=== PATIENT | female | born 1935 | race Two or more races ===

== ENCOUNTER 2021-12-24 18:44 | Inpatient (IN) | payer MEDICARE, MEDICAID ==
[~2021-12-24] VITALS: Ht 160 cm; Wt 91.0 kg
[2021-12-24 19:22] LABS: Basophils # (auto) 0.1 10 ^3/uL (0-0.2); Basophils % (auto) 0.9 % (0.0-2.0); Eosinophils # (auto) 0.2 10 ^3/uL (0-0.8); Eosinophils % (auto) 2.1 % (0.0-7.0); Hematocrit 31.7 % (36.0-46.0); Hemoglobin 10.8 g/dL (12.2-16.2); Lymphocytes # (auto) 2.1 10 ^3/uL (0.4-5.4); Lymphocytes % (auto) 24.5 % (10.0-50.0); Mean Corpuscular Hemoglobin 33.6 pg (28.0-32.0); Mean Corpuscular Hgb Conc. 34.1 g/dL (32.0-36.0); Mean Corpuscular Volume 98.7 fL (80.0-100.0); Monocytes # (auto) 0.5 10 ^3/uL (0-1.3); Monocytes % (auto) 5.8 % (0.0-12.0); Neutrophils # (auto) 5.7 10 ^3/uL (1.6-8.6); Neutrophils % (auto) 66.7 % (37.0-80.0); Red Blood Cells 3.21 10^6/uL (4.0-5.20); Red Cell Distribution Width 13.4 % (11.8-14.3); White Blood Cell 8.5 10^3/uL (4.4-10.8)
[2021-12-24 19:41] LABS: Albumin 3.3 g/dL (3.4-5.0); BUN/Creatinine Ratio 17.3; Calcium 8.3 mg/dL (8.5-10.1); Potassium 4.5 mmol/L (3.5-5.1)
[2021-12-24 19:44] LABS: Bilirubin, Total 0.4 mg/dL (0.2-1.0); Total Protein 6.7 g/dL (6.4-8.2)
[2021-12-24] MEDS ORDERED: SODIUM CHLORIDE 0.9% 1,000 ML IVB ONE (20:15)
[2021-12-24] MEDS ORDERED: KETOROLAC TROMETH 30 MG/ML 1ML VIAL IV ONE (20:15)
[2021-12-24 20:52] LABS: Urine Bacteria FEW /hpf (None Seen); Urine Blood 3+ /uL (Negative); Urine Specific Gravity 1.015 (1.001-1.035); Urine WBC 29 /hpf (0 - 5)
[2021-12-24] MEDS ORDERED: cefTRIAXone 1GM/50ML D5W 50 ML IV ONE (21:00)
[2021-12-24] MEDS ORDERED: ONDANSETRON HCL 4 MG/2 ML VIAL IV PRN (22:15)
[2021-12-24] MEDS ORDERED: ACETAMINOPHEN 325 MG TAB PO PRN (22:15)
[2021-12-25 01:30] VITALS: BP 122/74
[2021-12-25 03:07] VITALS: BP 122/74
[2021-12-25 05:00] VITALS: BP 133/96
[2021-12-25 06:10] LABS: Basophils # (auto) 0.1 10 ^3/uL (0-0.2); Eosinophils # (auto) 0.2 10 ^3/uL (0-0.8); Eosinophils % (auto) 2.8 % (0.0-7.0); Mean Corpuscular Hgb Conc. 35.2 g/dL (32.0-36.0); Monocytes # (auto) 0.5 10 ^3/uL (0-1.3); Neutrophils # (auto) 5.4 10 ^3/uL (1.6-8.6); Red Blood Cells 2.59 10^6/uL (4.0-5.20)
[2021-12-25 06:14] LABS: Basophils % (auto) 0.7 % (0.0-2.0); Hematocrit 25.6 % (36.0-46.0); Lymphocytes # (auto) 1.4 10 ^3/uL (0.4-5.4); Lymphocytes % (auto) 18.9 % (10.0-50.0); Mean Corpuscular Hemoglobin 34.8 pg (28.0-32.0); Mean Corpuscular Volume 98.9 fL (80.0-100.0); Monocytes % (auto) 7.1 % (0.0-12.0); Neutrophils % (auto) 70.5 % (37.0-80.0); Nucleated Red Blood Cells % 0.2 %; Red Cell Distribution Width 13.2 % (11.8-14.3); White Blood Cell 7.6 10^3/uL (4.4-10.8)
[2021-12-25 06:19] LABS: BUN/Creatinine Ratio 19.4; Potassium 4.6 mmol/L (3.5-5.1)
[2021-12-25] MEDS: LEVOTHYROXINE SODIUM 50 MCG TAB PO SCH (06:39)
[2021-12-25] MEDS: PANTOPRAZOLE 40 MG TAB PO SCH (09:18)
[2021-12-25] MEDS: cefTRIAXone 1GM/50ML D5W 50 ML IV SCH (09:18)
[2021-12-25] MEDS ORDERED: BENAZEPRIL HCL 10 MG TAB PO SCH (10:00)
[2021-12-25] MEDS ORDERED: hydrALAZINE HCL 20 MG/ML VL IV PRN (13:15)
[2021-12-25] MEDS: SODIUM CHLORIDE 0.9% 1,000 ML IV SCH (14:15)
[2021-12-25 18:13] LABS: INR 0.95 (0.9-1.15); Partial Thromboplastin Time 23.7 sec (23.6-33.0)
[2021-12-25] MEDS: ATORVASTATIN 20 MG TAB PO SCH (21:50)
[2021-12-25 22:00] VITALS: BP 132/78
[2021-12-25] MEDS: HYDROcodone-ACET 5/325MG TAB PO PRN (22:03)
[2021-12-26] MEDS: SODIUM CHLORIDE 0.9% 1,000 ML IV SCH ×3 (03:25→22:33)
[2021-12-26 05:11] VITALS: BP 130/78
[2021-12-26] MEDS: LEVOTHYROXINE SODIUM 50 MCG TAB PO SCH (05:57)
[2021-12-26 06:10] LABS: Basophils # (auto) 0 10 ^3/uL (0-0.2); Basophils % (auto) 0.6 % (0.0-2.0); Eosinophils # (auto) 0.3 10 ^3/uL (0-0.8); Eosinophils % (auto) 4.3 % (0.0-7.0); Hematocrit 23.1 % (36.0-46.0); Hemoglobin 7.9 g/dL (12.2-16.2); Lymphocytes # (auto) 1.2 10 ^3/uL (0.4-5.4); Lymphocytes % (auto) 21.4 % (10.0-50.0); Mean Corpuscular Hemoglobin 34.1 pg (28.0-32.0); Mean Corpuscular Hgb Conc. 34.2 g/dL (32.0-36.0); Mean Corpuscular Volume 99.6 fL (80.0-100.0); Monocytes # (auto) 0.4 10 ^3/uL (0-1.3); Monocytes % (auto) 7.4 % (0.0-12.0); Neutrophils # (auto) 3.8 10 ^3/uL (1.6-8.6); Neutrophils % (auto) 66.3 % (37.0-80.0); Nucleated Red Blood Cells % 0.1 %; Red Blood Cells 2.32 10^6/uL (4.0-5.20); Red Cell Distribution Width 13.4 % (11.8-14.3); White Blood Cell 5.8 10^3/uL (4.4-10.8)
[2021-12-26 06:21] LABS: Calcium 8.2 mg/dL (8.5-10.1); Magnesium 2.7 mg/dL (1.6-2.6); Potassium 4.6 mmol/L (3.5-5.1)
[2021-12-26 06:25] LABS: BUN/Creatinine Ratio 16.7
[2021-12-26 09:00] VITALS: BP 102/57
[2021-12-26] MEDS: PANTOPRAZOLE 40 MG TAB PO SCH (10:00)
[2021-12-26] MEDS ORDERED: ASCO1TAB27 PO (10:31)
[2021-12-26] MEDS: cefTRIAXone 1GM/50ML D5W 50 ML IV SCH (10:41)
[2021-12-26] MEDS ORDERED: MIDAZOLAM HCL 2MG/2ML 2ml VIAL (1mg/ml) ONE (12:44)
[2021-12-26] MEDS ORDERED: fentaNYL CITRATE 100 MCG/2 ML VL ONE (12:44)
[2021-12-26] MEDS ORDERED: IODIXANOL 320MG/ML 100ML BTL IV ONE (12:46)
[2021-12-26] MEDS ORDERED: LIDOCAINE 2%HCL (LOCAL ANESTH.) INJ 10ml MDV ONE (12:46)
[2021-12-26 13:00] VITALS: BP 112/59
[2021-12-26 17:00] VITALS: BP 119/45
[2021-12-26] MEDS: ATORVASTATIN 20 MG TAB PO SCH (21:04)
[2021-12-26 22:00] VITALS: BP 111/52
[2021-12-27 05:00] VITALS: BP 106/27
[2021-12-27] MEDS: LEVOTHYROXINE SODIUM 50 MCG TAB PO SCH (05:30)
[2021-12-27 05:34] LABS: Hemoglobin 7.6 g/dL (12.2-16.2)
[2021-12-27 05:40] LABS: Potassium 4.4 mmol/L (3.5-5.1)
[2021-12-27 05:45] LABS: Calcium 7.9 mg/dL (8.5-10.1)
[2021-12-27] MEDS: cefTRIAXone 1GM/50ML D5W 50 ML IV SCH (08:47)
[2021-12-27] MEDS: PANTOPRAZOLE 40 MG TAB PO SCH (08:47)
[2021-12-27 09:00] VITALS: BP 115/43
[2021-12-27] MEDS: SODIUM CHLORIDE 0.9% 1,000 ML IV SCH (11:11)
[2021-12-27 13:00] VITALS: BP 105/57
[2021-12-27] MEDS ORDERED: SODIUM CHL 0.9% IV ONE (14:30)
[2021-12-27] MEDS ORDERED: AMINOCAPROIC ACID IV ONE (14:30)
[2021-12-27 16:58] VITALS: BP 106/46
[2021-12-27 21:30] VITALS: BP 129/67
[2021-12-28] MEDS: SODIUM CHLORIDE 0.9% 1,000 ML IV SCH ×2 (04:13→20:05)
[2021-12-28 05:00] VITALS: BP 135/55
[2021-12-28] MEDS: LEVOTHYROXINE SODIUM 50 MCG TAB PO SCH (05:38)
[2021-12-28 05:51] LABS: Hemoglobin 7.4 g/dL (12.2-16.2)
[2021-12-28 06:14] LABS: BUN/Creatinine Ratio 14.2; Calcium 7.9 mg/dL (8.5-10.1); Potassium 4.5 mmol/L (3.5-5.1)
[2021-12-28 09:00] VITALS: BP 135/57
[2021-12-28] MEDS: HYDROcodone-ACET 5/325MG TAB PO PRN (10:32)
[2021-12-28] MEDS: PANTOPRAZOLE 40 MG TAB PO SCH (10:32)
[2021-12-28] MEDS: cefTRIAXone 1GM/50ML D5W 50 ML IV SCH (10:32)
[2021-12-28 13:00] VITALS: BP 100/53
[2021-12-28 17:00] VITALS: BP 130/68
[2021-12-28 21:44] VITALS: BP 119/54
[2021-12-29 05:00] VITALS: BP 139/61
[2021-12-29] MEDS: LEVOTHYROXINE SODIUM 50 MCG TAB PO SCH (06:26)
[2021-12-29 09:00] VITALS: BP 110/33
[2021-12-29] MEDS: PANTOPRAZOLE 40 MG TAB PO SCH (10:30)
[2021-12-29] MEDS: cefTRIAXone 1GM/50ML D5W 50 ML IV SCH (10:30)
[2021-12-29] MEDS: SODIUM CHLORIDE 0.9% 1,000 ML IV SCH (12:45)
[2021-12-29 13:00] VITALS: BP 135/85
[2021-12-29 17:00] VITALS: BP 121/59
[2021-12-29 22:00] VITALS: BP 119/34
[2021-12-30 05:00] VITALS: BP 128/37
[2021-12-30] MEDS: SODIUM CHLORIDE 0.9% 1,000 ML IV SCH (06:33)
[2021-12-30] MEDS: LEVOTHYROXINE SODIUM 50 MCG TAB PO SCH (06:33)
[2021-12-30 08:44] VITALS: BP 126/63
[2021-12-30] MEDS: PANTOPRAZOLE 40 MG TAB PO SCH (09:36)
[2021-12-30] MEDS: cefTRIAXone 1GM/50ML D5W 50 ML IV SCH (09:36)
[2021-12-30 13:00] VITALS: BP 119/64
[2021-12-30 16:28] LABS: Basophils # (auto) 0.1 10 ^3/uL (0-0.2); Eosinophils # (auto) 0.3 10 ^3/uL (0-0.8); Hematocrit 21.4 % (36.0-46.0); Neutrophils % (auto) 65.4 % (37.0-80.0); Nucleated Red Blood Cells % 0.1 %; White Blood Cell 6.5 10^3/uL (4.4-10.8)
[2021-12-30 16:30] LABS: Basophils % (auto) 1.2 % (0.0-2.0); Eosinophils % (auto) 4.5 % (0.0-7.0); Hemoglobin 7.6 g/dL (12.2-16.2); Lymphocytes # (auto) 1.4 10 ^3/uL (0.4-5.4); Lymphocytes % (auto) 20.8 % (10.0-50.0); Mean Corpuscular Hemoglobin 35.1 pg (28.0-32.0); Mean Corpuscular Hgb Conc. 35.4 g/dL (32.0-36.0); Mean Corpuscular Volume 99.1 fL (80.0-100.0); Monocytes # (auto) 0.5 10 ^3/uL (0-1.3); Monocytes % (auto) 8.1 % (0.0-12.0); Neutrophils # (auto) 4.2 10 ^3/uL (1.6-8.6); Red Blood Cells 2.16 10^6/uL (4.0-5.20); Red Cell Distribution Width 13.8 % (11.8-14.3)
[2021-12-30 17:00] VITALS: BP 118/59
[2021-12-30 21:55] VITALS: BP 114/55
[2021-12-31 05:04] VITALS: BP 122/57
[2021-12-31] MEDS: LEVOTHYROXINE SODIUM 50 MCG TAB PO SCH (06:39)
[2021-12-31] MEDS: SODIUM CHLORIDE 0.9% 1,000 ML IV SCH (06:40)
[2021-12-31 09:00] VITALS: BP 111/53
[2021-12-31] MEDS: cefTRIAXone 1GM/50ML D5W 50 ML IV SCH (09:15)
[2021-12-31] MEDS: PANTOPRAZOLE 40 MG TAB PO SCH (09:15)
[2021-12-31 13:00] VITALS: BP 121/69
[2021-12-31 13:40] VITALS: BP 128/78
== END 2021-12-31 15:52 | disposition home health service (06) | DRG 466 ==
LOC: ER 18:47 → OVERFLOW 22:46 → CENTRAL 23:39
PROVIDERS: ADMIT Nurse Practitioner; ATTEND Internal Medicine
PROC: 0T25X0Z Change Drainage Device in Kidney, External Approach (ICD-10-PCS; principal; 2021-12-26)
DX: T83.122A Displacement of indwelling ureteral stent, initial encounter (principal); N17.0 Acute kidney failure with tubular necrosis; F17.210 Nicotine dependence, cigarettes, uncomplicated; E03.9 Hypothyroidism, unspecified; N13.6 Pyonephrosis; Y73.2 Prosthetic and other implants, materials and accessory gastroenterology and urology devices associated with adverse incidents; E66.9 Obesity, unspecified; J44.9 Chronic obstructive pulmonary disease, unspecified; N18.9 Chronic kidney disease, unspecified; D64.9 Anemia, unspecified; Z20.822 Contact with and (suspected) exposure to COVID-19; R31.0 Gross hematuria; I12.9 Hypertensive chronic kidney disease with stage 1 through stage 4 chronic kidney disease, or unspecified chronic kidney disease; E78.5 Hyperlipidemia, unspecified; G62.9 Polyneuropathy, unspecified; G89.29 Other chronic pain; M54.50 Low back pain, unspecified; I25.10 Atherosclerotic heart disease of native coronary artery without angina pectoris; Z85.42 Personal history of malignant neoplasm of other parts of uterus; Z87.442 Personal history of urinary calculi; Z90.49 Acquired absence of other specified parts of digestive tract; Z93.6 Other artificial openings of urinary tract status; Z68.36 Body mass index [BMI] 36.0-36.9, adult; Y92.89 Other specified places as the place of occurrence of the external cause
CPT/HCPCS: 36415; 50435; 71045; 74176; 76942; 80048; 80053; 80061; 81001; 82962; 83605; 83735; 84443; 84484; 85014; 85018; 85025; 85610; 85730; 86850; 86900; 86901; 87040; 87086; 93005; 96365; 97163; 99152; C1729; G0378; J0696; J1885; J2001; J2250; Q9967